=== PATIENT | female | born 1950 | race American Indian/Alaskan Native ===

== ENCOUNTER 2016-08-30 22:23 | Emergency (ER) | payer SELFPAY ==
[2016-08-31 00:39] VITALS: BP 173/97
--- NOTE | 2016-08-31 01:42 | XRay Report ---
FINAL REPORT PROCEDURE: XR KNEE 1-2V LT TECHNIQUE: LEFT knee radiographs, AP and lateral views. CPT 66264 HISTORY: difficulty ambulating post fall COMPARISON: No prior studies are available for comparison. FINDINGS: There is a 12 centimeter expansile osseous lytic lesion identified in the distal left femur along the metaphyseal region. This causes partial destruction and expansion of the medial distal femoral cortex. Soft tissue swelling in this region of the distal femur is consistent with a soft tissue component of this mass. No acute fracture is identified. There is moderate narrowing of the joint spaces. A mild joint effusion is suspected. Additional advanced cross-sectional imaging of this region utilizing MRI will need to be performed. Further additional imaging may be needed. IMPRESSION: There is a 12 centimeters expansile lytic osseous lesion identified in the distal left femur along the metaphyseal region. This causes partial destruction of the medial distal femoral cortex with suspected soft tissue component to this mass. Further imaging differentiation will be required. No definitive acute fracture. Mild arthritis is noted. The above findings are discussed with the patient's ER physician at the time of dictation 00:36 central standard time on 08/31/2016.
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
== END 2016-08-31 04:03 | disposition home or self-care (01) ==
LOC: ED 22:23
DX: M25.561 Pain in right knee (principal)
CPT/HCPCS: 99283